=== PATIENT | female | born 1970 | race Caucasian/White ===

== ENCOUNTER 2016-08-04 17:23 | Inpatient (IN) | payer BC ==
[~2016-08-04] VITALS: Ht 160 cm; Wt 103.9 kg
[~2016-08-04 17:23] MED LIST: ANAPROX DS550 MG PO; AUGMENTIN 875 M1 TAB PO; BUSPAR15 MG PO; CIPROFLOXACIN500 MG PO; CLARITIN10 MG PO; DARVOCET N 1001 TAB PO; FLAGYL500 MG PO; FLONASE 0.05% 121 EA NAS; MEDROL DOSEPAK4 MG PO; MOTRIN800 MG PO; PRILOSEC40 MG PO; ROBAXIN750 MG PO; SIMVASTATIN40 MG PO; TRAMADOL HCL50 MG PO; ULTRAM50 MG PO; VENTOLIN INHALER; VICODIN 500 MG-1 TAB PO; VITAMIN D5000 IU PO; ZYRTEC10 MG PO
[2016-08-04 17:32] VITALS: BP 166/99
[2016-08-04 17:53] LABS: BASO # 0.1 10*3/uL (0.0-0.1); BASO % 0.6 % (0.0-1.0); EOS # 0.2 10*3/uL (0.0-0.4); EOS % 1.3 % (1.0-4.0); HEMATOCRIT 43.5 % (37.0-47.0); HEMOGLOBIN 14.1 g/dl (12.0-16.0); IG # 0.1 10*3/uL (0.0-0.1); LYMPH # 4.8 10*3/uL (1.3-4.4); LYMPH % 27.6 % (27.0-41.0); MEAN CELL VOLUME 90.6 fl (81.0-99.0); MEAN CORPUSCULAR HGB 29.4 pg (27.0-31.0); MEAN CORPUSCULAR HGB CONC 32.4 g/dl (33.0-37.0); MEAN PLATELET VOLUME 10.5 fl (9.6-12.3); MONO # 1.2 10*3/uL (0.1-1.0); MONO % 7.1 % (3.0-9.0); NEUT % 63.1 % (47.0-73.0); PLATELET COUNT AUTOMATED 290 10*3/uL (130-400); RED CELL DISTRI WIDTH 14.4 % (0-14.5); WHITE BLOOD COUNT 17.4 10*3/uL (4.8-10.8)
[2016-08-04 18:01] LABS: PROTHROMBIN TIME 10.2 SECONDS (9.0-12.4)
[2016-08-04 18:04] VITALS: BP 136/82
[2016-08-04] MEDS ORDERED: VITAMIN D1000 IU PO (18:07)
[2016-08-04 18:11] LABS: ALBUMIN 3.4 gm/dl (3.1-4.5); ALKALINE PHOSPHATASE 62 U/L (45-117); BILIRUBIN, TOTAL 0.3 mg/dl (0.2-1.0); BUN 12 mg/dl (7-24); CARBON DIOXIDE 25 mmol/L (21-32); CHLORIDE 109 mmol/L (98-107); EST GLOM FILT AFRICAN AMERICAN > 60 ml/min; GLUCOSE 97 mg/dL (65-99); SGOT/AST 18 IU/L (3-35); SGPT/ALT 18 U/L (12-78); SODIUM 146 mmol/L (136-145)
[2016-08-04 18:18] LABS: TROPONIN I < 0.015 ng/ml (<0.045)
[2016-08-04 18:35] VITALS: BP 152/82
[2016-08-04 19:29] VITALS: BP 152/82
[2016-08-04 20:00] VITALS: BP 152/74
[2016-08-04 20:05] VITALS: BP 152/74
[2016-08-05] VITALS: BP 139/82
== END 2016-08-05 00:20 | disposition short-term general hospital (02) | DRG 313 ==
LOC: ED 17:23 → EDHOLD 18:41 → 5E 19:06 → ICCU 21:42
PROVIDERS: Emergency Medicine
DX: R07.9 Chest pain, unspecified (principal); Z88.1 Allergy status to other antibiotic agents; Z88.5 Allergy status to narcotic agent; Z79.899 Other long term (current) drug therapy; Z82.49 Family history of ischemic heart disease and other diseases of the circulatory system; Z80.9 Family history of malignant neoplasm, unspecified; Z83.6 Family history of other diseases of the respiratory system; Z83.3 Family history of diabetes mellitus

== ENCOUNTER → 2017-05-30 | Outpatient (CLI) | payer BC ==
[~2017-05-30] MED LIST changes: +VITAMIN D1000 IU PO
[2017-05-30 14:26] LABS: SGOT/AST 18 IU/L (3-35); SGPT/ALT 22 U/L (12-78)
[2017-05-30 14:30] LABS: CHOLESTEROL 127 mg/dL (<200); HDL CHOLESTEROL 46 mg/dl (40-60); LDL CHOLESTEROL 34 mg/dL (9-159); TRIGLYCERIDES 235 mg/dl (<150); VLDL CHOLESTEROL 47 mg/dL (6-40)
== END | disposition home or self-care (01) ==
LOC: LAB 14:00
PROVIDERS: Internal Medicine Cardiovascular Disease
DX: E78.5 Hyperlipidemia, unspecified (principal)

== ENCOUNTER → 2017-12-12 | Outpatient (CLI) | payer BC ==
[2017-12-12 12:11] LABS: CHOLESTEROL 134 mg/dL (<200); HDL CHOLESTEROL 50 mg/dl (40-60); LDL CHOLESTEROL 38 mg/dL (9-159); SGOT/AST 15 IU/L (3-35); SGPT/ALT 22 U/L (12-78); TRIGLYCERIDES 228 mg/dl (<150); VLDL CHOLESTEROL 46 mg/dL (6-40)
== END | disposition home or self-care (01) ==
LOC: LAB 11:19
PROVIDERS: Internal Medicine Cardiovascular Disease
DX: E78.5 Hyperlipidemia, unspecified (principal)

== ENCOUNTER → 2018-05-29 | Outpatient (CLI) | payer BC ==
[2018-05-29 13:38] LABS: CHOLESTEROL 111 mg/dL (<200); SGOT/AST 15 IU/L (3-35); SGPT/ALT 21 U/L (12-78); TRIGLYCERIDES 134 mg/dl (<150); VLDL CHOLESTEROL 27 mg/dL (6-40)
[2018-05-29 13:39] LABS: HDL CHOLESTEROL 48 mg/dl (40-60); LDL CHOLESTEROL 36 mg/dL (9-159)
== END | disposition home or self-care (01) ==
LOC: LAB 12:21
PROVIDERS: Internal Medicine Cardiovascular Disease
DX: I25.10 Atherosclerotic heart disease of native coronary artery without angina pectoris (principal)

== ENCOUNTER → 2018-12-04 | Outpatient (CLI) | payer BC ==
[2018-12-04 10:24] LABS: BUN 14 mg/dl (7-24); CHLORIDE 108 mmol/L (98-107); CHOLESTEROL 125 mg/dL (<200); CREATININE 0.82 mg/dL (0.55-1.02); POTASSIUM 4.3 mmol/L (3.5-5.1); SGOT/AST 12 IU/L (3-35); SGPT/ALT 18 U/L (12-78); SODIUM 140 mmol/L (136-145)
[2018-12-04 10:37] LABS: HDL CHOLESTEROL 43 mg/dl (40-60); LDL CHOLESTEROL 47 mg/dL (9-159); TRIGLYCERIDES 173 mg/dl (<150); VLDL CHOLESTEROL 35 mg/dL (6-40)
== END | disposition home or self-care (01) ==
LOC: LAB 09:52
PROVIDERS: Internal Medicine Cardiovascular Disease
DX: E78.5 Hyperlipidemia, unspecified (principal)

== ENCOUNTER 2019-01-13 16:49 | Emergency (ER) | payer BC ==
[~2019-01-13] VITALS: Ht 160 cm; Wt 96.6 kg
--- NOTE | ~2019-01-13 | EKG ---
[place], [place] ELECTROCARDIOGRAM REPORT NAME: JOSEFA BOBO UNIT #: [id number] ROOM: DOCTOR: EPIPHANY DRAFT REPORT BIRTHDATE: [birth year] [facility] Test Date: 2019-01-13 Test Time: 19:38:57 Pat Name: JOSEFA BOBO Department: Room: Gender: F Nursing Admin: : [id number] Requested By: TOMASA GANT DNP Order Number: [id number] Reading MD: Measurements Intervals [place] Rate: 65 P: 12 MS: 141 QRS: 88 QRSD: 101 T: 57 QT: 422 QTc: 439 Interpretive Statements Sinus rhythm Abnormal R-wave progression, late transition Borderline T wave abnormalities Baseline wander in lead(s) V5 No previous ECG available for comparison CM:EKGRPT:ELECTROCARDIOGRAM REPORT 37 1641 [facility] TOMASA GANT DNP
[2019-01-13 17:31] LABS: BASO # 0.1 10*3/uL (0.0-0.1); BASO % 0.4 % (0.0-1.0); EOS # 0.2 10*3/uL (0.0-0.4); EOS % 1.1 % (1.0-4.0); HEMATOCRIT 42.7 % (37.0-47.0); HEMOGLOBIN 13.4 g/dl (12.0-16.0); LYMPH # 3.7 10*3/uL (1.3-4.4); LYMPH % 23.5 % (27.0-41.0); MEAN CELL VOLUME 91.2 fl (81.0-99.0); MEAN CORPUSCULAR HGB 28.6 pg (27.0-31.0); MEAN CORPUSCULAR HGB CONC 31.4 g/dl (33.0-37.0); MEAN PLATELET VOLUME 10.5 fl (9.6-12.3); MONO # 1.2 10*3/uL (0.1-1.0); MONO % 7.9 % (3.0-9.0); NEUT # 10.4 10*3/uL (2.3-7.9); NEUT % 66.7 % (47.0-73.0); PLATELET COUNT AUTOMATED 279 10*3/uL (130-400); RED BLOOD COUNT 4.68 10*6/uL (4.10-5.10); WHITE BLOOD COUNT 15.7 10*3/uL (4.8-10.8)
[2019-01-13 17:46] LABS: ACT PARTIAL THROMBO TIME 24.9 SECONDS (20.0-32.1); INTERNATIONAL NORM RATIO 0.9 (2.0-3.5)
[2019-01-13 17:57] LABS: ALBUMIN 3.2 gm/dl (3.1-4.5); ALKALINE PHOSPHATASE 81 U/L (45-117); BUN 14 mg/dl (7-24); CHLORIDE 110 mmol/L (98-107); CREATININE 0.81 mg/dL (0.55-1.02); LIPASE 155 U/L (73-393); POTASSIUM 3.8 mmol/L (3.5-5.1); SGOT/AST 15 IU/L (3-35); SGPT/ALT 21 U/L (12-78); SODIUM 139 mmol/L (136-145); TOTAL PROTEIN 7.1 gm/dL (6.4-8.2)
[2019-01-13 18:01] LABS: BILIRUBIN NEGATIVE (NEGATIVE); BLOOD 1+ (NEGATIVE); CLARITY CLEAR (CLEAR); COLOR YELLOW (YELLOW); GLUCOSE NEGATIVE (NEGATIVE); KETONE NEGATIVE (NEGATIVE); LEUKO ESTERASE NEGATIVE (NEGATIVE); NITRITE NEGATIVE (NEGATIVE); UROBILINOGEN 0.2 E.U./dl (0.2-1.0)
[2019-01-13 18:01] LABS: TROPONIN I < 0.015 ng/ml (<0.045)
[2019-01-13 18:17] LABS: BACTERIA TRACE; EPITHELIAL CELLS 21-30
== END 2019-01-13 23:33 | disposition short-term general hospital (02) ==
LOC: ED 16:49
PROVIDERS: Nurse Practitioner Family
DX: G45.9 Transient cerebral ischemic attack, unspecified (principal); I25.2 Old myocardial infarction; J45.909 Unspecified asthma, uncomplicated; E78.5 Hyperlipidemia, unspecified; I10 Essential (primary) hypertension; K21.9 Gastro-esophageal reflux disease without esophagitis; E78.00 Pure hypercholesterolemia, unspecified; Z88.1 Allergy status to other antibiotic agents; Z88.5 Allergy status to narcotic agent; Z79.899 Other long term (current) drug therapy

== ENCOUNTER → 2020-07-31 | Outpatient (CLI) | payer BC ==
[2020-07-31 11:53] LABS: ALKALINE PHOSPHATASE 88 U/L (45-117); BUN 13 mg/dl (7-24); CHLORIDE 110 mmol/L (98-107); CHOLESTEROL 111 mg/dL (<200); CREATININE 0.85 mg/dL (0.55-1.02); LDL CHOLESTEROL 40 mg/dL (9-159); POTASSIUM 3.9 mmol/L (3.5-5.1); SGOT/AST 14 IU/L (3-35); SGPT/ALT 20 U/L (12-78); SODIUM 139 mmol/L (136-145); TRIGLYCERIDES 157 mg/dl (<150)
== END | disposition home or self-care (01) ==
LOC: LAB 10:56
PROVIDERS: ATTEND Internal Medicine Cardiovascular Disease
DX: I25.10 Atherosclerotic heart disease of native coronary artery without angina pectoris (principal)

== ENCOUNTER → 2020-08-06 | Outpatient (CLI) | payer BC | END | disposition home or self-care (01) | LOC: CARD 09:17 | PROVIDERS: ATTEND Internal Medicine Cardiovascular Disease | DX: I25.10 Atherosclerotic heart disease of native coronary artery without angina pectoris (principal) ==

== ENCOUNTER → 2021-07-08 | Outpatient (CLI) | payer BC ==
[2021-07-08 15:21] LABS: HEMATOCRIT 47.9 % (37.0-47.0); MEAN CELL VOLUME 89.5 fl (81.0-99.0); MEAN CORPUSCULAR HGB 29.3 pg (27.0-31.0); MEAN CORPUSCULAR HGB CONC 32.8 g/dl (33.0-37.0); MEAN PLATELET VOLUME 10.3 fl (9.6-12.3); RED BLOOD COUNT 5.35 10*6/uL (4.10-5.10); RED CELL DISTRI WIDTH 14.6 % (0-14.5); WHITE BLOOD COUNT 13.2 10*3/uL (4.8-10.8)
[2021-07-08 15:45] LABS: BUN 14 mg/dl (7-24); CHLORIDE 111 mmol/L (98-107); CHOLESTEROL 137 mg/dL (<200); CREATININE 0.94 mg/dL (0.55-1.02); LDL CHOLESTEROL 31 mg/dL (9-159); POTASSIUM 4.3 mmol/L (3.5-5.1); SODIUM 141 mmol/L (136-145); TRIGLYCERIDES 342 mg/dl (<150)
== END | disposition home or self-care (01) ==
LOC: LAB 14:57
PROVIDERS: ATTEND Internal Medicine Cardiovascular Disease
DX: E78.2 Mixed hyperlipidemia (principal)

== ENCOUNTER 2023-01-03 18:39 | Emergency (ER) | payer BC ==
[~2023-01-03] VITALS: Ht 165.1 cm; Wt 97.5 kg
[2023-01-03 19:38] LABS: BASO # 0.1 10*3/uL (0.0-0.1); BASO % 0.7 % (0.0-1.0); EOS # 0.4 10*3/uL (0.0-0.4); EOS % 2.4 % (1.0-4.0); HEMATOCRIT 48.3 % (37.0-47.0); LYMPH % 26.4 % (27.0-41.0); MEAN CORPUSCULAR HGB 30.1 pg (27.0-31.0); MEAN CORPUSCULAR HGB CONC 32.7 g/dl (33.0-37.0); MEAN PLATELET VOLUME 10.4 fl (9.6-12.3); MONO % 6.3 % (3.0-9.0); NEUT # 9.7 10*3/uL (2.3-7.9); NEUT % 63.9 % (47.0-73.0); PLATELET COUNT AUTOMATED 222 10*3/uL (130-400); RED BLOOD COUNT 5.25 10*6/uL (4.10-5.10); RED CELL DISTRI WIDTH 14.6 % (0-14.5); WHITE BLOOD COUNT 15.1 10*3/uL (4.8-10.8)
[2023-01-03 20:03] LABS: ALKALINE PHOSPHATASE 81 U/L (46-116); BUN 13 mg/dl (9-23); CHLORIDE 108 mmol/L (98-107); POTASSIUM 4.1 mmol/L (3.4-5.1); SGPT/ALT 28 U/L (5-49); TOTAL PROTEIN 6.8 gm/dL (6.0-8.0)
[2023-01-03] MEDS ORDERED: PREDNISONE50 MG PO (20:18)
== END 2023-01-03 20:21 | disposition home or self-care (01) ==
LOC: ED 18:39
PROVIDERS: Internal Medicine
DX: L23.7 Allergic contact dermatitis due to plants, except food (principal); J45.909 Unspecified asthma, uncomplicated; F41.9 Anxiety disorder, unspecified; K21.9 Gastro-esophageal reflux disease without esophagitis; E78.00 Pure hypercholesterolemia, unspecified; Z88.5 Allergy status to narcotic agent; Z88.1 Allergy status to other antibiotic agents; Z98.51 Tubal ligation status; Z90.49 Acquired absence of other specified parts of digestive tract; Z98.890 Other specified postprocedural states

== ENCOUNTER 2023-09-17 13:42 | Emergency (ER) | payer BC ==
[~2023-09-17] VITALS: Ht 160 cm; Wt 98.9 kg
[~2023-09-17 13:42] MED LIST changes: +PREDNISONE50 MG PO
[2023-09-17] MEDS ORDERED: Ondansetron Hydrochloride 4 MG/2 ML VIAL IV ONE (14:15)
[2023-09-17] MEDS ORDERED: Ketorolac Tromethamine 15 MG/ML VIAL IV ONE (14:15)
[2023-09-17] MEDS ORDERED: SODIUM CHLORIDE 0.9% 1,000 ML IV ONE (14:15)
[2023-09-17] MEDS ORDERED: IOHEXOL 300 MG/ML 100 ML VIAL IV ONE (14:20)
[2023-09-17 14:31] LABS: BASO # 0.1 10*3/uL (0.0-0.1); BASO % 0.6 % (0.0-1.0); EOS # 0.3 10*3/uL (0.0-0.4); EOS % 2.2 % (1.0-4.0); LYMPH # 3.7 10*3/uL (1.3-4.4); LYMPH % 29.5 % (27.0-41.0); MEAN CELL VOLUME 93.7 fl (81.0-99.0); MEAN CORPUSCULAR HGB 30.3 pg (27.0-31.0); MEAN CORPUSCULAR HGB CONC 32.4 g/dl (33.0-37.0); MEAN PLATELET VOLUME 10.7 fl (9.6-12.3); MONO # 0.9 10*3/uL (0.1-1.0); MONO % 7.1 % (3.0-9.0); NEUT # 7.5 10*3/uL (2.3-7.9); NEUT % 60.3 % (47.0-73.0); PLATELET COUNT AUTOMATED 196 10*3/uL (130-400); RED BLOOD COUNT 4.91 10*6/uL (4.10-5.10); WHITE BLOOD COUNT 12.5 10*3/uL (4.8-10.8)
[2023-09-17] MEDS ORDERED: ATORVASTATIN CA40 M1 PO (14:41)
[2023-09-17] MEDS ORDERED: CLOPIDOGREL75 MG PO (14:41)
[2023-09-17] MEDS ORDERED: CARVEDILOL12.5 MG PO (14:41)
[2023-09-17] MEDS ORDERED: VAZALORE81 MG PO (14:42)
[2023-09-17 14:52] LABS: BILIRUBIN Negative (Negative); BLOOD Negative (Negative); CLARITY Clear (Clear); COLOR Yellow (Yellow); GLUCOSE Negative (Negative); KETONE Negative (Negative); LEUKO ESTERASE Negative (Negative); NITRITE Negative (Negative); PH 5.5 (4.5-8.0); SPECIFIC GRAVITY 1.025 (1.001-1.030); UROBILINOGEN 0.2 E.U./dl (0.0-1.0)
[2023-09-17 14:54] LABS: BUN 11 mg/dl (9-23); CHLORIDE 111 mmol/L (98-107); LIPASE 121 U/L (12-53); POTASSIUM 3.9 mmol/L (3.4-5.1); SGPT/ALT 14 U/L (5-49)
[2023-09-17 15:07] LABS: BACTERIA TRACE
[2023-09-17] MEDS ORDERED: Ondansetron4 MG PO (17:40)
[2023-09-17] MEDS ORDERED: AMOX-CLAV 875-1 EACH PO (17:40)
[2023-09-17] MEDS ORDERED: PERCOCET 5-3251 EACH PO (17:40)
== END 2023-09-17 17:59 | disposition home or self-care (01) ==
LOC: ED 13:42
PROVIDERS: Nurse Practitioner Family
DX: K57.32 Diverticulitis of large intestine without perforation or abscess without bleeding (principal); R11.2 Nausea with vomiting, unspecified; F17.200 Nicotine dependence, unspecified, uncomplicated; Z88.1 Allergy status to other antibiotic agents; Z88.5 Allergy status to narcotic agent; Z79.899 Other long term (current) drug therapy; Z79.82 Long term (current) use of aspirin; Z90.49 Acquired absence of other specified parts of digestive tract; Z98.51 Tubal ligation status

== ENCOUNTER 2024-07-06 20:59 | Emergency (ER) | payer BC ==
[~2024-07-06] VITALS: Ht 160 cm; Wt 95.3 kg
[~2024-07-06 20:59] MED LIST changes: +AMOX-CLAV 875-1 EACH PO; +ATORVASTATIN CA40 M1 PO; +CARVEDILOL12.5 MG PO; +CLOPIDOGREL75 MG PO; +Ondansetron4 MG PO; +PERCOCET 5-3251 EACH PO; +VAZALORE81 MG PO
[2024-07-06] MEDS ORDERED: Tdap Vaccine 0.5 ML SYR (Adult Vaccine) IM ONE (21:25)
[2024-07-06] MEDS ORDERED: METHOCARBAMOL750 M1 PO (23:14)
[2024-07-06] MEDS ORDERED: METHOCARBAMOL 750 MG TAB PO ONE (23:15)
== END 2024-07-06 23:28 | disposition home or self-care (01) ==
LOC: ED 20:59
DX: S00.83XA Contusion of other part of head, initial encounter (principal); S40.011A Contusion of right shoulder, initial encounter; S80.811A Abrasion, right lower leg, initial encounter; J45.909 Unspecified asthma, uncomplicated; K21.9 Gastro-esophageal reflux disease without esophagitis; E78.00 Pure hypercholesterolemia, unspecified; F41.9 Anxiety disorder, unspecified; Z79.82 Long term (current) use of aspirin; Z79.899 Other long term (current) drug therapy; Z88.1 Allergy status to other antibiotic agents; Z88.5 Allergy status to narcotic agent; Z98.890 Other specified postprocedural states; W18.39XA Other fall on same level, initial encounter; Y93.A6 Activity, grass drills; Y92.89 Other specified places as the place of occurrence of the external cause; Y99.8 Other external cause status

== ENCOUNTER → 2024-09-06 | Outpatient (CLI) | payer BC ==
[~2024-09-06] MED LIST changes: +METHOCARBAMOL750 M1 PO
[2024-09-06 15:51] LABS: BUN 12 mg/dl (9-23); LDL CHOLESTEROL 57 mg/dL (9-159); SGPT/ALT 12 U/L (5-49)
== END | disposition home or self-care (01) ==
LOC: LAB 15:00
PROVIDERS: ATTEND Internal Medicine Cardiovascular Disease
DX: I25.10 Atherosclerotic heart disease of native coronary artery without angina pectoris (principal)

== ENCOUNTER 2025-01-25 15:59 | Emergency (ER) | payer BC ==
[~2025-01-25] VITALS: Ht 160 cm; Wt 92.1 kg
[2025-01-25] MEDS ORDERED: METHOCARBAMOL 500 MG TAB PO ONE (16:30)
[2025-01-25 16:49] LABS: BILIRUBIN Negative (Negative); BLOOD Negative (Negative); CLARITY Clear (Clear); COLOR Yellow (Yellow); KETONE Negative (Negative); LEUKO ESTERASE Negative (Negative); NITRITE Negative (Negative); PH 7.5 (4.5-8.0); SPECIFIC GRAVITY 1.010 (1.001-1.030); UROBILINOGEN 0.2 E.U./dl (0.0-1.0)
[2025-01-25 17:05] LABS: BACTERIA TRACE; RBC 0-2 rbc/hpf (0-2); WBC 0-2 wbc/hpf (0-5)
[2025-01-25] MEDS ORDERED: PREDNISONE20 M1 PO (17:29)
[2025-01-25] MEDS ORDERED: METHOCARBAMOL500 M1 PO (17:29)
== END 2025-01-25 17:31 | disposition home or self-care (01) ==
LOC: ED 15:59
PROVIDERS: Nurse Practitioner Family
DX: M54.41 Lumbago with sciatica, right side (principal); F41.9 Anxiety disorder, unspecified; J45.909 Unspecified asthma, uncomplicated; K21.9 Gastro-esophageal reflux disease without esophagitis; E78.00 Pure hypercholesterolemia, unspecified; Z90.49 Acquired absence of other specified parts of digestive tract; Z88.5 Allergy status to narcotic agent; Z88.1 Allergy status to other antibiotic agents